=== PATIENT | female | born 1940 | race Caucasian/White ===

== ENCOUNTER → 2018-08-20 | Outpatient (CLI) | payer MEDICARE, OTHER ==
--- NOTE | 2018-08-20 11:23 | Diagnostic Imaging Report ---
INDICATION: Left knee pain. Time of exam: 10:26 AM 3 views of the left knee demonstrate normal alignment. Joint spaces are well-maintained. Articular surfaces are smooth. No fracture, dislocation or effusion is seen. There is mild patellofemoral degenerative change. IMPRESSION: Mild degenerative changes. No acute bony abnormality is detected. Dictated by: Dictated on workstation # [id number]
== END ==
LOC: RAD FS 10:21
PROVIDERS: ATTEND Family Medicine
DX: M17.12 Unilateral primary osteoarthritis, left knee (principal)
CPT/HCPCS: 73562

== ENCOUNTER → 2019-05-25 | Outpatient (CLI) | payer MEDICARE, OTHER ==
[~2019-05-25] VITALS: Ht 160 cm; Wt 66.4 kg
[~2019-05-25] MED LIST: LIDOCAINE 1% INJ 20 ML 20 ML VIAL INJ ONE; LIDOCAINE 1% INJ 20 ML 20 ML VIAL ONE
--- NOTE | 2019-05-25 11:41 | Diagnostic Imaging Report ---
INDICATION: Right breast mass. Patient presents for ultrasound-guided biopsy. TECHNIQUE: The patient was brought to the procedure room and placed on the table in the supine position. Ultrasound imaging over the right breast was performed to evaluate for an appropriate entry site. The right breast was then prepped and draped in the usual sterile fashion. A small amount of 1% lidocaine was utilized for local anesthesia. Three core biopsies were obtained of the hypoechoic mass at the 2 o'clock location of the right breast 7 cm from the nipple utilizing a 14-gauge Achieve needle. A marker clip was then deployed. Hemostasis was obtained using manual compression. The patient tolerated the procedure well and left the Department in stable condition. The patient obtained a post procedure mammogram. IMPRESSION: Successful ultrasound-guided core biopsy of the right breast mass at the 2 o'clock location 7 cm from the nipple. The Pathology results are currently pending. Dictated by: Dictated on workstation # [id number]
--- NOTE | 2019-05-25 12:07 | Diagnostic Imaging Report ---
INDICATION: Right breast mass. Patient is status post ultrasound-guided biopsy. TECHNIQUE/FINDINGS: Unilateral right 2D CC and ML mammography was performed post biopsy. A marker clip is located adjacent to the spiculated mass in the upper and inner aspect of the right breast at mid depth. IMPRESSION: A marker clip is located adjacent to the mass. Dictated by: Dictated on workstation # [id number]
== END ==
LOC: RAD 08:42
PROVIDERS: ATTEND Family Medicine
DX: N63.21 Unspecified lump in the left breast, upper outer quadrant (principal); R92.8 Other abnormal and inconclusive findings on diagnostic imaging of breast
CPT/HCPCS: 19083

== ENCOUNTER → 2020-05-10 | Outpatient (CLI) | payer MEDICARE, OTHER ==
--- NOTE | 2020-05-10 13:34 | Diagnostic Imaging Report ---
INDICATION: Postmenopausal. COMPARISON: None FINDINGS: The bone mineral density of the hips and spine was measured. There are no prior studies available for comparison. The T score for the spine is 1.2. The total T score for the left hip is 0.5 and for the right hip 0.4. The T score for the left femoral neck is -0.4 and for the right -0.6. All of these values are within normal limits. AP Spine L1-L4: [BMD (g/cm2): 1.345] [T-Score: 1.2] [Z-Score: 3.0] [BMD Previous: NA] [BMD % Change: NA] LT Hip Neck: [BMD (g/cm2): 0.984] [T-Score: -0.4] [Z-Score: 1.8] LT Hip Total: [BMD (g/cm2):1.076] [T-Score:0.5] [Z-Score: 2.5] [BMD Previous: NA] [BMD % Change: NA] RT Hip Neck: [BMD (g/cm2):0.948] [T-Score:-0.6] [Z-Score:1.5] RT Hip Total: [BMD (g/cm2):1.052] [T-score:0.4] [Z-Score:2.4] [BMD Previous:NA] [BMD % Change:NA] *Indicates significant change from prior examination based on 95% confidence level. World Health Organization criteria for BMD interpretation classify patients as Normal (T-score at or above -1.0), Osteopenic (T-score between -1.0 and -2.5) or Osteoporotic (T-score at or below -2.5). LIMITATIONS AND MODIFICATION: None. FRACTURE RISK (FRAX SCORE): The ten year probability of (%): Major Osteoporotic Fracture: [NA] Hip Fracture: [NA] IMPRESSION: 1. The bone mineral density of the hips and spine is within normal limits. 2. See below National Osteopor[employer] Foundation guidelines on when to potentially initiate pharmacologic therapy. Based on the National Osteoporosis Foundation Guidelines, pharmacologic treatment should be initiated in any of the following, unless clinical conditions suggest otherwise: * Any patient with prior fragility fracture of the hip or vertebrae. A spine fracture indicates 5X risk for subsequent spine fracture and 2X risk for subsequent hip fracture. * Osteoporosis (T-score <-2.5). * Postmenopausal women and men age 50 and older with low bone mass/osteopenia (T-score between -1.0 and -2.5) by DXA and 10-year major osteoporotic fracture greater than 20% or a 10-year probability of hip fracture greater than 3%. These fracture risks are supplied above in the FRAX score, if applicable. * Clinician judgement and/or patient preferences may indicate treatment for people with 10-year fracture probabilities above or below these levels. Dictated by: Dictated on workstation # [id number]
== END ==
LOC: RAD 12:08
PROVIDERS: ATTEND Internal Medicine Hematology & Oncology
DX: C50.211 Malignant neoplasm of upper-inner quadrant of right female breast (principal); Z78.0 Asymptomatic menopausal state
CPT/HCPCS: 77080